=== PATIENT | male | born 1965 | race African-American/Black ===

== ENCOUNTER 2017-09-28 12:33 | Emergency (ER) | payer SELFPAY ==
[~2017-09-28] VITALS: Ht 190.5 cm; Wt 88.0 kg
[2017-09-28 13:26] LABS: BASOPHILS % 0.4 % (0.0-2.0); EOSINOPHILS % 0.5 % (0.0-5.0); HEMATOCRIT. 46.1 % (42.0-52.0); HEMOGLOBIN. 15.4 g/dL (14.0-18.0); LYMPHOCYTES % 25.7 % (20.0-50.0); MEAN CORPUSCULAR HEMOGLOBIN 28.5 pg (28.0-32.0); MEAN CORPUSCULAR VOLUME 85.1 fL (80.0-94.0); MEAN PLATELET VOLUME 10.1 fl (7.4-10.4); MONOCYTES % 3.8 % (2.0-8.0); NEUTROPHILS % 69.6 % (40.0-76.0); PLATELET 232 x1000/uL (130-400); RED BLOOD CELL COUNT 5.41 mill/uL (4.7-6.1); RED CELL DISTRIBUTION WIDTH 13.5 % (11.6-14.6)
[2017-09-28 13:30] LABS: CHLORIDE 98 mEq/L (98-107)
[2017-09-28 20:15] LABS: COLOR URINE YELLOW (YELLOW); KETONES URINE 1+ (NEGATIVE); LEUKOCYTE ESTERASE URINE NEGATIVE (NEGATIVE); NITRITE URINE NEGATIVE (NEGATIVE); OCCULT BLOOD URINE NEGATIVE (NEGATIVE); PROTEIN URINE NEGATIVE (NEGATIVE); SPECIFIC GRAVITY URINE 1.039 (1.005-1.030); UROBILINOGEN URINE 0.2 E.U./dL (0.2-1.0)
[2017-09-28] MEDS ORDERED: METFORMIN HCL 500MG TABLET PO ONE (20:30)
[2017-09-28 20:31] LABS: CLARITY URINE CLEAR (CLEAR)
[2017-09-28 21:00] VITALS: BP 139/83
== END 2017-09-28 21:20 | disposition home or self-care (01) ==
LOC: ER 14:25
DX: E11.65 Type 2 diabetes mellitus with hyperglycemia (principal); F17.200 Nicotine dependence, unspecified, uncomplicated; F12.10 Cannabis abuse, uncomplicated
CPT/HCPCS: 36415; 80053; 81003; 82962; 85025; 99284